=== PATIENT | female | born 1970 | race Caucasian/White ===

== ENCOUNTER 2023-12-27 18:51 | Emergency (ER) | payer OTHER, SELFPAY ==
[2023-12-27 19:17] VITALS: BP 140/87; PULSE 85; RESP 16; TEMP 36.8; O2SAT 100
--- NOTE | 2023-12-27 20:09 | ED.GENADULT ---
HPI - General Adult General Chief complaint: Skin/Abscess/Foreign Body Stated complaint: insect bite Source: patient Mode of arrival: ambulatory Limitations: no limitations History of Present Illness HPI narrative: Patient presents for evaluation of which she suspects to be an insect bite to the left buttock. She indicates she was hiking 2 weeks ago. She felt which she thought to be an insect on her left buttock at that time. She was able to remove it but did not visualize which insect it was specifically. Her ended up removing several ticks off of him. today her grandchild came up and touched her in the buttock overlying the site previously mentioned. She had pain in that area and had a family member visualize her skin. She was informed that she had an area of redness and it was recommended she come in for further evaluation and treatment. She denies any fever, chills, nausea, vomiting, purulence from the affected area. She has rheumatoid arthritis and receives Humira injections. Related Data Home Medications Medication Instructions Recorded Confirmed adalimumab 40 mg/0.8 mL 40 mg subcut WEEKLY 12/27/23 12/27/23 subcutaneous pen kit (Humira Pen) alprazolam 0.5 mg tablet 0.5 mg PO DAILY 12/27/23 12/27/23 ergocalciferol (vitamin D2) 1,250 50,000 mcg PO WEEKLY 12/27/23 12/27/23 mcg (50,000 unit) capsule folic acid 1 mg tablet 1 mg PO DAILY 12/27/23 12/27/23 methotrexate sodium 2.5 mg tablet 15 mg PO WEEKLY 12/27/23 12/27/23 metoprolol succinate 25 mg 25 mg PO DAILY 12/27/23 12/27/23 tablet,extended release 24 hr naproxen 500 mg tablet 500 mg PO BID 12/27/23 12/27/23 pantoprazole 20 mg tablet,delayed 20 mg PO DAILY 12/27/23 12/27/23 release tramadol 50 mg tablet 50 mg PO DAILY 12/27/23 12/27/23 trazodone 100 mg tablet 100 mg PO HS 12/27/23 12/27/23 valacyclovir 1 gram tablet 1 mg PO BID 12/27/23 12/27/23 Allergies Allergy/AdvReac Type Severity Reaction Status Date / Time No Known Allergies Allergy Verified 12/27/23 19:32 Review of Systems Review of Systems: CONSTITUTIONAL: Denies fever, chills, or sweats. EYES: Denies visual changes, redness, or discharge. ENT: Denies rhinorrhea, congestion, sore throat, or otalgia. CARDIOVASCULAR: Denies chest pain, palpitations, or edema. RESPIRATORY: Denies cough or dyspnea. GASTROINTESTINAL: Denies abdominal pain, nausea, vomiting, or diarrhea. GENITOURINARY: Denies dysuria or hematuria. SKIN: reports lesion to the left buttock that she suspects is an insect bite MUSCULOSKELETAL: Denies back pain, joint pain, or myalgia. NEUROLOGIC: Denies headache, numbness, dizziness, or weakness. PSYCHIATRIC: Denies anxiety or depression. [facility] Past Medical History Medical History Rheumatoid arthritis Surgical History Surgical History No pertinent past surgical history Family History Family History Mother Family history non-contributory Social History Social History Smoking status: Never smoker Living arrangements: with family Gender identity (if verbalized by the patient): Female Sexual Orientation (if Verbalized by the Patient): Straight or Heterosexual Spiritual care concerns: No Exam Narrative: GENERAL: Well-appearing, well-nourished, and in no acute distress. HEAD: Normocephalic, atraumatic. EYES: PERRLA and EOMI. ENT: Nares clear, no rhinorrhea or epistaxis. Mucous membranes moist. Oropharynx without tonsillar hypertrophy exudate or other lesions. Bilateral TMs pearly adame nonbulging NECK: Supple. No adenopathy or masses. No carotid bruits or JVD CHEST: Clear to auscultation. No respiratory distress. No wheezes rales or rhonchi HEART: Regular rate and rhythm. No murmur heard. Normal periphera
--- NOTE | 2023-12-27 20:23 | ED.GENADULT ---
HPI - General Adult General Chief complaint: Skin/Abscess/Foreign Body Stated complaint: insect bite Source: patient Mode of arrival: ambulatory Limitations: no limitations History of Present Illness HPI narrative: Patient presents for evaluation of left-sided ear pain. Symptom onset within the last 24 hours. She states she has had some allergy symptoms as of late including sinus congestion. She has been taking Sudafed for symptoms. She now feels like she is under water . She also reports decreased hearing on the left. She denies any tinnitus or drainage from the ear. No fever, chills, nausea, vomiting, sore throat, cough. No recent sick contacts to her knowledge. She is not smoke. Related Data Home Medications Medication Instructions Recorded Confirmed adalimumab 40 mg/0.8 mL 40 mg subcut WEEKLY 12/27/23 12/27/23 subcutaneous pen kit (Humira Pen) alprazolam 0.5 mg tablet 0.5 mg PO DAILY 12/27/23 12/27/23 ergocalciferol (vitamin D2) 1,250 50,000 mcg PO WEEKLY 12/27/23 12/27/23 mcg (50,000 unit) capsule folic acid 1 mg tablet 1 mg PO DAILY 12/27/23 12/27/23 methotrexate sodium 2.5 mg tablet 15 mg PO WEEKLY 12/27/23 12/27/23 metoprolol succinate 25 mg 25 mg PO DAILY 12/27/23 12/27/23 tablet,extended release 24 hr naproxen 500 mg tablet 500 mg PO BID 12/27/23 12/27/23 pantoprazole 20 mg tablet,delayed 20 mg PO DAILY 12/27/23 12/27/23 release tramadol 50 mg tablet 50 mg PO DAILY 12/27/23 12/27/23 trazodone 100 mg tablet 100 mg PO HS 12/27/23 12/27/23 valacyclovir 1 gram tablet 1 mg PO BID 12/27/23 12/27/23 Allergies Allergy/AdvReac Type Severity Reaction Status Date / Time No Known Allergies Allergy Verified 12/27/23 19:32 Review of Systems Review of Systems: CONSTITUTIONAL: Denies fever, chills, or sweats. EYES: Denies visual changes, redness, or discharge. ENT: Reports left-sided ear pain, decreased hearing, sensation that she is under water . Denies any tinnitus or drainage from left ear.Denies rhinorrhea, congestion, sore throat. CARDIOVASCULAR: Denies chest pain, palpitations, or edema. RESPIRATORY: Denies cough or dyspnea. GASTROINTESTINAL: Denies abdominal pain, nausea, vomiting, or diarrhea. GENITOURINARY: Denies dysuria or hematuria. SKIN: Denies rash or itching. MUSCULOSKELETAL: Denies back pain, joint pain, or myalgia. NEUROLOGIC: Denies headache, numbness, dizziness, or weakness. PSYCHIATRIC: Denies anxiety or depression. [facility] Past Medical History Medical History Rheumatoid arthritis Surgical History Surgical History No pertinent past surgical history Family History Family History Mother Family history non-contributory Social History Social History Smoking status: Never smoker Living arrangements: with family Gender identity (if verbalized by the patient): Female Sexual Orientation (if Verbalized by the Patient): Straight or Heterosexual Spiritual care concerns: No Course Vital Signs Vital signs: Vital Signs Temperature 36.8 C 12/27/23 19:17 Pulse Rate 85 12/27/23 19:17 Respiratory Rate 16 12/27/23 19:17 Blood Pressure 140/87 12/27/23 19:17 Pulse Oximetry 100 12/27/23 19:17 Oxygen Delivery Room Air 12/27/23 19:17 Temperature 36.8 C 12/27/23 19:17 Pulse Rate 85 12/27/23 19:17 Respiratory Rate 16 12/27/23 19:17 Blood Pressure 140/87 12/27/23 19:17 Pulse Oximetry 100 12/27/23 19:17 Oxygen Delivery Room Air 12/27/23 19:17 Medical Decision Making Vital Signs Vital Signs: Vital Signs Temperature 36.8 C 12/27/23 19:17 Pulse Rate 85 12/27/23 19:17 Respiratory Rate 16 12/27/23 19:17 Blood Pressure 140/87 12/27/23 19:17 Pulse Oximetry 100 12/27/23 1
== END 2023-12-27 20:25 | disposition home or self-care (01) ==
PROVIDERS: Emergency Provider Nurse Practitioner
DX: S30.860A Insect bite (nonvenomous) of lower back and pelvis, initial encounter (principal); W57.XXXA Bitten or stung by nonvenomous insect and other nonvenomous arthropods, initial encounter; M06.9 Rheumatoid arthritis, unspecified
CPT/HCPCS: 87070; 87075; 87081; 87147; 87181; 87205; 99203; G0463